=== PATIENT | female | born 1990 | race Caucasian/White ===

== ENCOUNTER 2018-05-17 11:48 | Outpatient (CLI) | payer SELFPAY ==
[2018-05-17 12:58] LABS: HEMATOCRIT 37.1 % (36.0-47.0); HEMOGLOBIN 13.2 g/dl (12.0-15.5); MEAN CORPUSCULAR HEMOGLOBIN 32.5 pg (27.0-33.0); MEAN CORPUSCULAR HGB CONC 35.6 g/dl (32.0-36.5); MEAN CORPUSCULAR VOLUME 91.4 fl (80.0-96.0); PLATELET COUNT, AUTOMATED 195 10^3/uL (150-450); RED BLOOD COUNT 4.06 10^6/uL (4.00-5.40); RED CELL DISTRIBUTION WIDTH 12.3 % (11.5-14.5); WHITE BLOOD COUNT 9.7 10^3/uL (4.0-10.0)
[2018-05-17 13:18] LABS: TOTAL PROTEIN,RANDOM URINE 12.9 MG/DL (0.0-12.0)
[2018-05-17 13:25] LABS: ALT/SGPT 20 U/L (12-78); AST/SGOT 23 U/L (7-37); BILIRUBIN,TOTAL 0.2 MG/DL (0.2-1.0); CREATININE FOR GFR 0.48 MG/DL (0.55-1.30); GLOMERULAR FILTRATION RATE > 60.0 (>60); LDH LACTATE DEHYDROGENASE 213 U/L (84-246); URIC ACID 3.6 MG/DL (2.6-6.0)
== END 2018-05-17 13:54 | disposition home or self-care (01) ==
LOC: M LDO 11:48
DX: O16.3 Unspecified maternal hypertension, third trimester (principal); Z3A.31 31 weeks gestation of pregnancy
CPT/HCPCS: 76815

== ENCOUNTER 2018-07-12 22:29 | Inpatient (IN) | payer SELFPAY ==
[2018-07-12] MEDS ORDERED: OXYTOCIN DRIP 30 UNITS in APPROPRIATE DILUENT 1 EA IV (23:15)
[2018-07-12] MEDS: LABETALOL HCL 100 MG/20 ML VIAL IV (23:29)
[2018-07-12] MEDS: MAG Sulf (L&D) 4 GM/100 ML 4 GM in APPROPRIATE DILUENT 1 EA IV (23:32)
[2018-07-12] MEDS: BETAMETHASONE SOLUSPAN 6MG/ML INJ 5ML (J0702) IM (23:47)
[2018-07-12] MEDS: PENICILLIN G POTASSIUM IV 5 MU in D5W MINI-BAG PLUS 100 ML IV (23:47)
[2018-07-13] MEDS: LABETALOL HCL 100 MG/20 ML VIAL IV ×3 (00:05→01:01)
[2018-07-13] MEDS: MAG Sulf (OBGYN) 20GM/500ML 20,000 MG in APPROPRIATE DILUENT 1 EA IV ×3 (00:07→16:17)
[2018-07-13 00:24] LABS: HEMATOCRIT 38.9 % (36.0-47.0); HEMOGLOBIN 13.7 g/dl (12.0-15.5); MEAN CORPUSCULAR HEMOGLOBIN 32.5 pg (27.0-33.0); MEAN CORPUSCULAR HGB CONC 35.2 g/dl (32.0-36.5); MEAN CORPUSCULAR VOLUME 92.2 fl (80.0-96.0); PLATELET COUNT, AUTOMATED 155 10^3/uL (150-450); RED BLOOD COUNT 4.22 10^6/uL (4.00-5.40); RED CELL DISTRIBUTION WIDTH 12.1 % (11.5-14.5)
[2018-07-13 00:26] LABS: ALT/SGPT 33 U/L (12-78); AST/SGOT 42 U/L (7-37); BILIRUBIN,TOTAL 0.2 MG/DL (0.2-1.0); CREATININE FOR GFR 0.51 MG/DL (0.55-1.30); GLOMERULAR FILTRATION RATE > 60.0 (>60); LDH LACTATE DEHYDROGENASE 260 U/L (84-246); URIC ACID 5.3 MG/DL (2.6-6.0)
[2018-07-13 01:02] LABS: TOTAL PROTEIN,RANDOM URINE 6.7 MG/DL (0.0-12.0)
[2018-07-13 01:43] LABS: HBSAG L&D NEGATIVE (NEGATIVE)
[2018-07-13 02:13] LABS: CONTROL LINE INT CTR LINE PRESENT; HIV SCRN NEGATIVE (NEGATIVE); HIV SCRN1 NEGATIVE (NEGATIVE)
[2018-07-13] MEDS: LR 1,000 ML IV ×2 (02:48→16:27)
[2018-07-13] MEDS: PENICILLIN G POTASSIUM IV 2.5 MU in APPROPRIATE DILUENT 1 EA IV ×5 (04:13→20:00)
[2018-07-13] MEDS ORDERED: MAGNESIUM SULFATE 4% INJ 20GM/500ML (40MG/ML) (J3475) As Ordered (05:53)
[2018-07-13 06:40] LABS: HEMATOCRIT 38.1 % (36.0-47.0); HEMOGLOBIN 13.7 g/dl (12.0-15.5); MEAN CORPUSCULAR HEMOGLOBIN 32.2 pg (27.0-33.0); MEAN CORPUSCULAR VOLUME 89.6 fl (80.0-96.0); PLATELET COUNT, AUTOMATED 170 10^3/uL (150-450); RED BLOOD COUNT 4.25 10^6/uL (4.00-5.40); WHITE BLOOD COUNT 10.7 10^3/uL (4.0-10.0)
[2018-07-13] MEDS: hydrALAZINE INJ 20 MG/ML VIAL IV (07:56)
[2018-07-13] MEDS: LABETALOL 200 MG TAB PO ×2 (08:15→21:00)
[2018-07-13] MEDS: miSOPROStol 50 MCG 1/2 TAB (S0191) PO ×3 (13:20→21:00)
[2018-07-13] MEDS: BETAMETHASONE SOLUSPAN 6MG/ML INJ 5ML (J0702) IM (23:15)
[2018-07-14] MEDS: miSOPROStol 50 MCG 1/2 TAB (S0191) PO (01:00)
[2018-07-14] MEDS: miSOPROStol 100 MCG TAB (S0191) PO (01:00)
[2018-07-14] MEDS ORDERED: MAGNESIUM SULFATE 4% INJ 20GM/500ML (40MG/ML) (J3475) As Ordered ×2 (01:22→19:00)
[2018-07-14] MEDS: MAG Sulf (OBGYN) 20GM/500ML 20,000 MG in APPROPRIATE DILUENT 1 EA IV ×2 (01:30→12:11)
[2018-07-14] MEDS: PENICILLIN G POTASSIUM IV 2.5 MU in APPROPRIATE DILUENT 1 EA IV ×4 (04:00→12:10)
[2018-07-14] MEDS ORDERED: OXYTOCIN DRIP 30 UNITS in APPROPRIATE DILUENT 1 EA IV (04:45)
[2018-07-14] MEDS: LR 1,000 ML IV ×3 (04:55→19:27)
[2018-07-14 07:03] LABS: HEMATOCRIT 37.6 % (36.0-47.0); MEAN CORPUSCULAR HEMOGLOBIN 32.3 pg (27.0-33.0); MEAN CORPUSCULAR HGB CONC 34.6 g/dl (32.0-36.5); MEAN CORPUSCULAR VOLUME 93.3 fl (80.0-96.0); PLATELET COUNT, AUTOMATED 152 10^3/uL (150-450); RED BLOOD COUNT 4.03 10^6/uL (4.00-5.40); RED CELL DISTRIBUTION WIDTH 12.5 % (11.5-14.5)
[2018-07-14 07:22] LABS: MAGNESIUM LEVEL 5.9 MG/DL (1.8-2.4)
[2018-07-14] MEDS: LABETALOL 200 MG TAB PO ×2 (08:26→21:00)
[2018-07-14] MEDS ORDERED: hydrALAZINE INJ 20 MG/ML VIAL As Ordered (13:27)
[2018-07-14] MEDS: hydrALAZINE INJ 20 MG/ML VIAL IV ×2 (13:45→14:43)
[2018-07-14 13:50] LABS: HEMATOCRIT 40.6 % (36.0-47.0); HEMOGLOBIN 14.3 g/dl (12.0-15.5); MEAN CORPUSCULAR HEMOGLOBIN 32.4 pg (27.0-33.0); MEAN CORPUSCULAR HGB CONC 35.2 g/dl (32.0-36.5); MEAN CORPUSCULAR VOLUME 91.9 fl (80.0-96.0); RED BLOOD COUNT 4.42 10^6/uL (4.00-5.40); RED CELL DISTRIBUTION WIDTH 12.4 % (11.5-14.5); WHITE BLOOD COUNT 12.4 10^3/uL (4.0-10.0)
[2018-07-14 13:54] LABS: PLATELET COUNT, AUTOMATED 95 10^3/uL (150-450)
[2018-07-14 14:13] LABS: IMMATURE PLATELET FRACTION % 12.1 % (0.0-9.6)
[2018-07-14 14:17] LABS: ALT/SGPT 268 U/L (12-78); AST/SGOT 623 U/L (7-37); BILIRUBIN,TOTAL 0.9 MG/DL (0.2-1.0); CREATININE FOR GFR 0.65 MG/DL (0.55-1.30); GLOMERULAR FILTRATION RATE > 60.0 (>60); LDH LACTATE DEHYDROGENASE 997 U/L (84-246); URIC ACID 5.9 MG/DL (2.6-6.0)
[2018-07-14] MEDS ORDERED: ceFAZolin 2 GM/D5W 50 ML IV BAG (J0690 PER 500MG) As Ordered (14:51)
[2018-07-14] MEDS ORDERED: BICITRA 30ML SOLN UDC As Ordered (14:51)
[2018-07-14] MEDS: BICITRA 30ML SOLN UDC PO (15:30)
[2018-07-14] MEDS ORDERED: METOCLOPRAMIDE INJ 10MG/2ML VIAL (J2765) IV (15:34)
[2018-07-14] MEDS ORDERED: NALBUPHINE HCL 10 MG/ML AMP (J2300) IV ×2 (15:34→17:00)
[2018-07-14] MEDS ORDERED: ONDANSETRON 4MG/2ML VIAL (J2405) IV ×2 (15:34→17:00)
[2018-07-14] MEDS ORDERED: NALOXONE INJ 0.4 MG/1 ML VIAL (J2310) IV ×2 (15:34)
[2018-07-14] MEDS ORDERED: ONDANSETRON 4MG/2ML VIAL (J2405) As Ordered (15:51)
[2018-07-14] MEDS ORDERED: ePHEDrine SULFATE 25 MG/5 ML(5MG/ML) SYRINGE As Ordered (15:51)
[2018-07-14] MEDS ORDERED: OXYTOCIN INJ 10 UNITS/ML VIAL (J2590) As Ordered (15:51)
[2018-07-14] MEDS ORDERED: dexameTHASONE 4 MG/ML 1ML VIAL (J1100) As Ordered (15:51)
[2018-07-14] MEDS ORDERED: MORPHINE PRES-FREE INJ 10 MG/10 ML VIAL (J2274) As Ordered (15:51)
[2018-07-14 15:56] LABS: CORD GAS ABE A -1.6; CORD GAS O2 SAT A 32.7 %; CORD GAS PCO2 A 54.6 mmHg; CORD GAS PH A 7.296 UNITS; CORD GAS PO2 A 18.3 mmHg; CORD GAS SBC A 21.4 MEQ/L; CORD GAS TCO2 A 27.7 MEQ/L
[2018-07-14 15:58] LABS: CORD GAS ABE V -1.7; CORD GAS HCO3 V 24.1 MEQ/L; CORD GAS PCO2 V 44.7 mmHg; CORD GAS PO2 V 16.7 mmHg; CORD GAS SBC V 21.3 MEQ/L; CORD GAS TCO2 V 25.5 MEQ/L
[2018-07-14] MEDS ORDERED: LOPERAMIDE 2 MG CAP PO (16:30)
[2018-07-14] MEDS ORDERED: DOCUSATE SODIUM 100 MG CAP PO (16:30)
[2018-07-14] MEDS ORDERED: MEASLES,MUMPS,RUBELLA VACCINE INJ (MMR-II) (90707) SC (16:30)
[2018-07-14] MEDS ORDERED: PERCOCET 5MG/325MG TAB PO ×2 (16:30)
[2018-07-14] MEDS ORDERED: MOM 30ML SUSPENSION UDC PO (16:30)
[2018-07-14] MEDS ORDERED: RHOGAM 300 MCG (1500 IU) INJ (J2790) IM (16:30)
[2018-07-14] MEDS: OXYTOCIN DRIP 30 UNITS in APPROPRIATE DILUENT 1 EA IV (16:45)
[2018-07-14] MEDS: miSOPROStol 200 MCG TAB (S0191) PR (16:45)
[2018-07-14] MEDS: CARBOPROST TROMETHAMINE 250 MCG/ML AMP IM (17:00)
[2018-07-14] MEDS ORDERED: fentaNYL 100 MCG/2 ML INJECTION (J3010) IV (17:00)
[2018-07-14 18:45] LABS: HEMATOCRIT 37.4 % (36.0-47.0); HEMOGLOBIN 12.9 g/dl (12.0-15.5); MEAN CORPUSCULAR HGB CONC 34.5 g/dl (32.0-36.5); MEAN CORPUSCULAR VOLUME 92.8 fl (80.0-96.0); RED BLOOD COUNT 4.03 10^6/uL (4.00-5.40); RED CELL DISTRIBUTION WIDTH 12.5 % (11.5-14.5); WHITE BLOOD COUNT 13.6 10^3/uL (4.0-10.0)
[2018-07-14] MEDS ORDERED: MAG Sulf (OBGYN) 20GM/500ML 20,000 MG in APPROPRIATE DILUENT 1 EA IV ×2 (18:53→19:08)
[2018-07-14 18:55] LABS: PLATELET COUNT, AUTOMATED 79 10^3/uL (150-450)
[2018-07-14] MEDS: KETOROLAC 30 MG/ML VIAL (J1885) IV ×2 (19:04→23:00)
[2018-07-14 19:14] LABS: ALT/SGPT 259 U/L (12-78); AST/SGOT 719 U/L (7-37); BILIRUBIN,TOTAL 1.2 MG/DL (0.2-1.0); GLOMERULAR FILTRATION RATE > 60.0 (>60); URIC ACID 5.8 MG/DL (2.6-6.0)
[2018-07-14 19:22] LABS: LDH LACTATE DEHYDROGENASE 1153 U/L (84-246)
[2018-07-14] MEDS ORDERED: oxyCODONE 5MG TAB PO ×2 (20:00)
[2018-07-14 21:58] LABS: HEMATOCRIT 28.8 % (36.0-47.0); HEMOGLOBIN 9.8 g/dl (12.0-15.5); MEAN CORPUSCULAR HEMOGLOBIN 32.1 pg (27.0-33.0); MEAN CORPUSCULAR VOLUME 94.4 fl (80.0-96.0); RED BLOOD COUNT 3.05 10^6/uL (4.00-5.40); RED CELL DISTRIBUTION WIDTH 12.8 % (11.5-14.5)
[2018-07-14 22:19] LABS: ALT/SGPT 179 U/L (12-78); AST/SGOT 486 U/L (7-37); BILIRUBIN,TOTAL 0.9 MG/DL (0.2-1.0); CREATININE FOR GFR 0.91 MG/DL (0.55-1.30); GLOMERULAR FILTRATION RATE > 60.0 (>60); LDH LACTATE DEHYDROGENASE 762 U/L (84-246); URIC ACID 6.6 MG/DL (2.6-6.0)
[2018-07-14 22:21] LABS: PLATELET COUNT, AUTOMATED 90 10^3/uL (150-450)
[2018-07-14] MEDS: LACTATED RINGER'S 1000 ML IV (23:00)
[2018-07-14] MEDS: ONDANSETRON 4MG/2ML VIAL (J2405) IV (23:06)
[2018-07-15] MEDS: LR 1,000 ML IV ×3 (01:14→23:45)
[2018-07-15] MEDS: KETOROLAC 30 MG/ML VIAL (J1885) IV (05:00)
[2018-07-15 05:41] LABS: HEMATOCRIT 23.5 % (36.0-47.0); MEAN CORPUSCULAR HEMOGLOBIN 32.7 pg (27.0-33.0); MEAN CORPUSCULAR VOLUME 95.9 fl (80.0-96.0); RED BLOOD COUNT 2.45 10^6/uL (4.00-5.40); RED CELL DISTRIBUTION WIDTH 13.2 % (11.5-14.5); WHITE BLOOD COUNT 20.7 10^3/uL (4.0-10.0)
[2018-07-15 05:44] LABS: PLATELET COUNT, AUTOMATED 89 10^3/uL (150-450)
[2018-07-15 06:10] LABS: ALT/SGPT 172 U/L (12-78); AST/SGOT 375 U/L (7-37); BILIRUBIN,TOTAL 0.5 MG/DL (0.2-1.0); GLOMERULAR FILTRATION RATE > 60.0 (>60); LDH LACTATE DEHYDROGENASE 746 U/L (84-246); URIC ACID 7.6 MG/DL (2.6-6.0)
[2018-07-15] MEDS: MAG Sulf (OBGYN) 20GM/500ML 20,000 MG in APPROPRIATE DILUENT 1 EA IV (07:23)
[2018-07-15] MEDS: LABETALOL 200 MG TAB PO ×2 (09:00→21:00)
[2018-07-15] MEDS: PRENATAL VITAMINS CHEWABLE TABLET PO (09:00)
[2018-07-15] MEDS: IBUPROFEN 800 MG TAB PO ×2 (13:05→21:00)
[2018-07-15] MEDS ORDERED: miSOPROStol 200 MCG TAB (S0191) As Ordered (23:38)
[2018-07-16] MEDS: IBUPROFEN 800 MG TAB PO ×3 (05:44→21:43)
[2018-07-16] MEDS: LABETALOL 200 MG TAB PO ×3 (09:32→21:43)
[2018-07-16] MEDS: LR 1,000 ML IV (09:45)
[2018-07-16] MEDS: PRENATAL VITAMINS CHEWABLE TABLET PO (09:58)
[2018-07-16 10:19] LABS: HEMATOCRIT 16.7 % (36.0-47.0); MEAN CORPUSCULAR HEMOGLOBIN 32.9 pg (27.0-33.0); MEAN CORPUSCULAR HGB CONC 34.1 g/dl (32.0-36.5); MEAN CORPUSCULAR VOLUME 96.5 fl (80.0-96.0); RED BLOOD COUNT 1.73 10^6/uL (4.00-5.40); RED CELL DISTRIBUTION WIDTH 13.3 % (11.5-14.5); WHITE BLOOD COUNT 11.5 10^3/uL (4.0-10.0)
[2018-07-16 10:20] LABS: PLATELET COUNT, AUTOMATED 87 10^3/uL (150-450)
[2018-07-16 10:24] LABS: HEMOGLOBIN 5.7 g/dl (12.0-15.5)
[2018-07-16 10:25] LABS: IMMATURE PLATELET FRACTION % 11.2 % (0.0-9.6)
[2018-07-16 10:42] LABS: ALKALINE PHOSPHATASE 82 U/L (45-117); ALT/SGPT 179 U/L (12-78); ANION GAP 6 MEQ/L (8-16); AST/SGOT 270 U/L (7-37); BILIRUBIN,TOTAL 0.3 MG/DL (0.2-1.0); BLOOD UREA NITROGEN 14 MG/DL (7-18); CALCIUM LEVEL 6.6 MG/DL (8.5-10.1); CARBON DIOXIDE LEVEL 26 MEQ/L (21-32); CHLORIDE LEVEL 111 MEQ/L (98-107); CREATININE FOR GFR 0.58 MG/DL (0.55-1.30); GLOMERULAR FILTRATION RATE > 60.0 (>60); GLUCOSE, FASTING 110 MG/DL (70-100); LDH LACTATE DEHYDROGENASE 586 U/L (84-246); POTASSIUM SERUM 3.8 MEQ/L (3.5-5.1); SODIUM LEVEL 143 MEQ/L (136-145); TOTAL PROTEIN 4.6 GM/DL (6.4-8.2)
[2018-07-16 12:51] LABS: HEMATOCRIT 16.7 % (36.0-47.0); MEAN CORPUSCULAR HEMOGLOBIN 33.1 pg (27.0-33.0); MEAN CORPUSCULAR HGB CONC 34.7 g/dl (32.0-36.5); MEAN CORPUSCULAR VOLUME 95.4 fl (80.0-96.0); RED BLOOD COUNT 1.75 10^6/uL (4.00-5.40); RED CELL DISTRIBUTION WIDTH 13.2 % (11.5-14.5); WHITE BLOOD COUNT 11.9 10^3/uL (4.0-10.0)
[2018-07-16 13:10] LABS: PLATELET COUNT, AUTOMATED 93 10^3/uL (150-450)
[2018-07-16 13:12] LABS: HEMOGLOBIN 5.8 g/dl (12.0-15.5)
[2018-07-16 14:24] LABS: URIC ACID 5.7 MG/DL (2.6-6.0)
[2018-07-16 14:40] LABS: IMMEDIATE SPIN CROSSMATCH 1 4
[2018-07-17] MEDS: LABETALOL HCL 100 MG/20 ML VIAL IV ×2 (03:15→03:50)
[2018-07-17] MEDS: IBUPROFEN 800 MG TAB PO ×2 (06:04→13:04)
[2018-07-17 07:07] LABS: HEMATOCRIT 27.2 % (36.0-47.0); MEAN CORPUSCULAR HEMOGLOBIN 31.4 pg (27.0-33.0); MEAN CORPUSCULAR HGB CONC 34.9 g/dl (32.0-36.5); MEAN CORPUSCULAR VOLUME 89.8 fl (80.0-96.0); PLATELET COUNT, AUTOMATED 103 10^3/uL (150-450); RED BLOOD COUNT 3.03 10^6/uL (4.00-5.40); RED CELL DISTRIBUTION WIDTH 15.3 % (11.5-14.5)
[2018-07-17 07:10] LABS: HEMOGLOBIN 9.5 g/dl (12.0-15.5)
[2018-07-17 07:26] LABS: ALBUMIN 2.3 GM/DL (3.2-5.2); ALKALINE PHOSPHATASE 97 U/L (45-117); ALT/SGPT 184 U/L (12-78); ANION GAP 8 MEQ/L (8-16); AST/SGOT 206 U/L (7-37); BILIRUBIN,TOTAL 0.5 MG/DL (0.2-1.0); BLOOD UREA NITROGEN 7 MG/DL (7-18); CALCIUM LEVEL 7.8 MG/DL (8.5-10.1); CARBON DIOXIDE LEVEL 21 MEQ/L (21-32); CHLORIDE LEVEL 112 MEQ/L (98-107); CREATININE FOR GFR 0.51 MG/DL (0.55-1.30); GLOMERULAR FILTRATION RATE > 60.0 (>60); GLUCOSE, FASTING 111 MG/DL (70-100); LDH LACTATE DEHYDROGENASE 508 U/L (84-246); POTASSIUM SERUM 3.8 MEQ/L (3.5-5.1); SODIUM LEVEL 141 MEQ/L (136-145); TOTAL PROTEIN 5.6 GM/DL (6.4-8.2); URIC ACID 4.4 MG/DL (2.6-6.0)
[2018-07-17] MEDS: PRENATAL VITAMINS CHEWABLE TABLET PO (08:49)
[2018-07-17] MEDS: LABETALOL 200 MG TAB PO (08:50)
[2018-07-17] MEDS: NIFEdipine 30 MG XL TAB PO (09:10)
== END 2018-07-17 15:45 | disposition left against medical advice (07) | DRG 540 ==
LOC: M LDO 22:29 → M LDI 23:06 → M OBS 07-15 21:30
PROC: 10D00Z1 Extraction of Products of Conception, Low, Open Approach (ICD-10-PCS; principal; 2018-07-14 15:25)
DX: O14.24 HELLP syndrome, complicating childbirth (principal); Z37.0 Single live birth; Z3A.36 36 weeks gestation of pregnancy; Z91.14 Patient's other noncompliance with medication regimen; Z91.15 Patient's noncompliance with renal dialysis; O09.33 Supervision of pregnancy with insufficient antenatal care, third trimester; O60.14X0 Preterm labor third trimester with preterm delivery third trimester, not applicable or unspecified; O61.0 Failed medical induction of labor